=== PATIENT | female | born 1960 | race Caucasian/White ===

== ENCOUNTER → 2019-12-18 15:11 | Outpatient (BNVA) | payer MEDICARE, SELFPAY | PROVIDERS: Family Provider Family Medicine; PCP Family Medicine; Referring Provider Family Medicine; Visit Provider Podiatrist Foot & Ankle Surgery | DX: M25.572 Pain in left ankle and joints of left foot (principal); M79.672 Pain in left foot | CPT/HCPCS: 73600; 73630 ==

== ENCOUNTER 2019-12-18 16:18 | Outpatient (CLI) | payer MEDICARE, SELFPAY | END 2019-12-18 16:19 | disposition home or self-care (01) | LOC: SPT 16:19 | PROVIDERS: Family Provider Family Medicine; PCP Family Medicine; Visit Provider Podiatrist Foot & Ankle Surgery | DX: Z46.89 Encounter for fitting and adjustment of other specified devices (principal); M76.72 Peroneal tendinitis, left leg; M25.572 Pain in left ankle and joints of left foot; M79.672 Pain in left foot | CPT/HCPCS: 73600; 73630; 97760; L4361 ==

== ENCOUNTER → 2023-03-01 13:58 | Outpatient (BNVA) | payer MEDICARE, SELFPAY | PROVIDERS: Family Provider Family Medicine; PCP Family Medicine; Visit Provider Podiatrist Foot & Ankle Surgery | DX: M72.2 Plantar fascial fibromatosis; Z46.89 Encounter for fitting and adjustment of other specified devices | CPT/HCPCS: 73630; 97760; 99213; L4397 ==

== ENCOUNTER 2023-03-01 15:52 | Outpatient (CLI) | payer MEDICARE, SELFPAY | END 2023-03-01 15:53 | disposition home or self-care (01) | LOC: SPT 16:28 | PROVIDERS: Family Provider Family Medicine; PCP Family Medicine; Visit Provider Podiatrist Foot & Ankle Surgery | DX: Z46.89 Encounter for fitting and adjustment of other specified devices (principal); M72.2 Plantar fascial fibromatosis | CPT/HCPCS: 97760; 99213; L4397 ==

== ENCOUNTER → 2023-05-02 14:35 | Outpatient (BNVA) | payer MEDICARE, SELFPAY | PROVIDERS: Family Provider Family Medicine; PCP Family Medicine; Visit Provider Podiatrist Foot & Ankle Surgery | DX: M72.2 Plantar fascial fibromatosis (principal) | CPT/HCPCS: 99213 ==

== ENCOUNTER → 2023-09-14 12:55 | Outpatient (BNVA) | payer MEDICARE, SELFPAY | PROVIDERS: Family Provider Family Medicine; PCP Family Medicine; Visit Provider Dermatology | DX: L40.0 Psoriasis vulgaris (principal); L30.4 Erythema intertrigo; L81.7 Pigmented purpuric dermatosis; L57.0 Actinic keratosis; L56.8 Other specified acute skin changes due to ultraviolet radiation | CPT/HCPCS: 17000; 99204 ==